=== PATIENT | female | born 1965 | race Asian ===

== ENCOUNTER 2025-01-23 08:02 | Outpatient (CLI) | payer BC, SELFPAY ==
--- NOTE | 2025-01-23 | EST_ITS ---
Patient Info Name: Placido Garcia Age: 60 years : 1965 Gender: Female Ht: 62 in Wt: 128 lbs BSA: 1.60 m2 HR: 67 bpm BP: 109 / 72 mmHg Exam Date: 01/23/2025 9:51 AM Exam Location: Echo Lab Patient Status: Outpatient Admit Date: 01/23/2025 Staff Ordering Physician: Jeff Balderas MD Attending Provider: Jeff Balderas MD Exam Type: CA stress test treadmill w NM Study Info Indications R07.89 - Other chest pain A nuclear stress test was performed. Summary 1. 1. Negative Marcus exercise stress test for ischemic ST changes by ECG criteria. 2. 2. Good functional capacity, achieving 10 METs of workload. 3. 3. Appropriate HR response to exercise. 4. 4. Appropriate HR recovery at 1 minute post exercise. 5. 5. Nuclear scan to follow and will be reported separately. Please correlate with it. 6. 6. Patient informed of the above results. Protocol: Marcus Stress ECG Details Stage: REST Duration (min): 3 min : 52 sec Speed (mph): 0.0 Grade (%): 0 HR (bpm): 73 SBP (mmHg): 109 DBP (mmHg): 72 METS: --- Stage: REST Duration (min): 9 min : 48 sec Speed (mph): 0.0 Grade (%): 0 HR (bpm): 73 SBP (mmHg): 109 DBP (mmHg): 72 METS: --- Stage: STAGE 1 Duration (min): 1 min : 0 sec Speed (mph): 1.7 Grade (%): 10 HR (bpm): 101 SBP (mmHg): 109 DBP (mmHg): 72 METS: --- Stage: STAGE 1 Duration (min): 2 min : 0 sec Speed (mph): 1.7 Grade (%): 10 HR (bpm): 120 SBP (mmHg): 109 DBP (mmHg): 72 METS: --- Stage: STAGE 1 Duration (min): 3 min : 0 sec Speed (mph): 1.7 Grade (%): 10 HR (bpm): 118 SBP (mmHg): 132 DBP (mmHg): 70 METS: --- Stage: STAGE 2 Duration (min): 1 min : 0 sec Speed (mph): 2.5 Grade (%): 12 HR (bpm): 125 SBP (mmHg): 132 DBP (mmHg): 70 METS: --- Stage: STAGE 2 Duration (min): 2 min : 0 sec Speed (mph): 2.5 Grade (%): 12 HR (bpm): 119 SBP (mmHg): 143 DBP (mmHg): 72 METS: --- Stage: STAGE 2 Duration (min): 3 min : 0 sec Speed (mph): 2.5 Grade (%): 12 HR (bpm): 136 SBP (mmHg): 143 DBP (mmHg): 72 METS: --- Stage: STAGE 3 Duration (min): 1 min : 0 sec Speed (mph): 3.4 Grade (%): 14 HR (bpm): 138 SBP (mmHg): 155 DBP (mmHg): 89 METS: --- Stage: STAGE 3 Duration (min): 1 min : 45 sec Speed (mph): 3.4 Grade (%): 14 HR (bpm): 148 SBP (mmHg): 155 DBP (mmHg): 89 METS: --- Stage: RECOVERY Duration (min): 0 min : 14 sec Speed (mph): 1.5 Grade (%): 0 HR (bpm): 149 SBP (mmHg): 155 DBP (mmHg): 89 METS: --- Stage: RECOVERY Duration (min): 1 min : 14 sec Speed (mph): 0.0 Grade (%): 0 HR (bpm): 124 SBP (mmHg): 155 DBP (mmHg): 89 METS: --- Stage: RECOVERY Duration (min): 2 min : 8 sec Speed (mph): 0.0 Grade (%): 0 HR (bpm): 107 SBP (mmHg): 155 DBP (mmHg): 89 METS: --- Rest HR: 73 bpm Peak HR: 149 bpm Rest Sys BP: 109 mmHg Peak Sys BP: 155 mmHg Max Pred HR: 161 bpm % Max Pred HR: 93 % Target HR: 137 bpm Max RPP: 23,095 bpm*mmHg Cueva Score: -5 Termination Reason: Reached target heart rate or workload Cardiac Symptoms: Shortness of breath Max ST Seg Deviation: 3 mm Total Time: 7 min : 45 sec Rest Noble BP: 72 mmHg Peak Noble BP: 89 mmHg Angina Score: None Total METS: 10.1 Resting ECG Sinus rhythm. Stress ECG No ST changes. Arrhythmias None. Report Signatures
--- NOTE | ~2025-01-23 | NM_ITS ---
NM stress w perf spect multi Procedure: The patient was stressed using Modified Marcus protocol. Prior to the end of exercise 33.6 mCi Tc 99m IV administered. Rest imaging performed following administration of 11.1 mCi Tc 99m IV. Images were reformatted into short axis, horizontal and vertical long axis sections for visual and q uantitative analysis. Indication: Anterior wall chest pain Comparison: None Findings: Computer assisted qualitative and quantitative analysis of the immediate and delayed images revealed normal left ventricular perfusion without evidence of fixed or reversible perfusion abnorma lity to suggest ischemia or infarction. Normal left ventricular cavity size, wall motion and ejectio n fraction. Left ventricular ejection fraction measures 90%. Impression: 1: No scintigraphic evidence of resting or stress induced perfusion abnormality. 2: Normal left ventricle ejection fraction measuring 90%. Reviewed, dictated and finalized at location A. Impression: 1: No scintigraphic evidence of resting or stress induced perfusion abnormality . 2: Normal left ventricle ejection fraction measuring 90%.
--- OUTSIDE RECORDS SUMMARY | 2025-01-23 08:13 | XMS_ITS | Continuity of Care Document ---
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 Role Phone Jeff Balderas MD Unavailable Unavailable Allergies, Adverse Reactions, Alerts Substance Reaction Status Criticality No Known Allergies Active No Inform ation Medications Medication Instructions Dosage Effective Dates (start - stop) Status Comments acetic acid 2 % ear solution 5 drop left ear every 4 hours x 5 days - Active triamcinolone acetonide 0.1 % topical cream apply by topical route 2 times every day a thin layer to the affected area(s) 0.00 - Active amoxicillin 875 mg-potassium clavulanate 125 mg tablet take 1 tablet by oral route every 12 hours 1.00 tablet - Active Crestor 5 mg tablet take 1 tablet by oral route every day 5 MG - Active Procedures Procedure Date PREV VISIT, EST, AGE 40-64 OFFICE/OUTPATIENT VISIT, EST OFFICE/OUTPATIENT VISIT, EST PREV VISIT, NEW, AGE 40-64 OFFICE/OUTPATIENT VISIT, NEW Advance Directives Directive Yes / No Effective Date File Name No Information Encounters Encounter Description Practice Location Reason(s) For Visit Diagnoses Date Provider Providers Copied on Encounter [facility], [address] [place], [id number], tel:[phone] [facility] No Information Andrey Aguilar. [address] [facility] [[email or web address]] [place], [place], [address] , [place]. tel:[phone] [facility], [address], [place], [place], [address], [place] tel:[phone] [facility] No Information 5 Andrey Aguilar. [address], [place], [place], [address] , [place]. tel:[phone] [facility], [address], [place], [place], [address], [place] tel:[phone] [facility] No Information 4 Andrey Aguilar. [address], [place], [place], [address] , [place]. tel:[phone] PREV VISIT, EST, AGE 40-64 [facility], [address], [place], [place], [address], [place] tel:[phone] [facility] physical (chief complaint) Mixed hyperlipidemiaLiver diseaseDisorder of thyroid, unspecifiedOther disorders of phosphorus metabolismGeneraliz ed abdominal painAnt chest-wall painEncounter for general adult medical exam w abnormal findingsHyperglycem iaAbdominal pain Mar- 4 Andrey Aguilar. [address], [place], [place], [address] , [place]. tel:[phone] [facility], [address], [place], [place], [address], [place] tel:[phone] [facility] Acute cystitis without hematuria Jun-2 3 Andrey Aguilar. [address], [place], [place], [address] , [place]. tel:[phone] OFFICE/OUTPA TIENT VISIT, EST [facility], [address], [place], [place], [address], [place] tel:[phone] [facility] vitamin d (chief complaint) HLP (chief complaint) thyroid1 (chief complaint) phos (chief complaint) LFT (chief complaint) Disorder of thyroid, unspecifiedVitamin D deficiency, unspecifiedHypergly cemiaHyperlipidemia Other disorders of phosphorus metabolismLiver disease 1 Andrey Aguilar. [address], [place], [place], [address] , [place]. tel:[phone] PREV VISIT, NEW, AGE 40-64 [facility], [address], [place], [place], [address], [place] tel:[phone] [facility] physical (chief complaint) Encounter for general adult medical exam w abnormal findingsZoster without complicationsFamily history of endo, nutritional and metabolic diseases 1 Andrey Aguilar. [address], [place], [place], [address] , [place]. tel:[phone] Family History Family Member Type Diagnosis Age At Onset Mother Problem Alive and well Father Problem Hypertension Brother Problem Alive and well Father Problem Thyroid disorder Payers Payer name Insurance type Covered green party ID Authoriza tion(s) No Information Social History Type Description Quantity Date Captured Comments Sex Female Smoking Status No Information Chief Complaint And Reason For Visit No Information Plan Of Treatment Date Type Action Status Referral Ordered: DXA BONE DENSITY, AXIAL ordered Referral Ordered: US, PELVIC (NONOBSTETRIC); ordered Referral Ordered: CARDIOVASCULAR STRESS TEST ordered Referral Ordered: UPPER GI AIR CONTRASTW/ SMALL BOWEL SERIES ordered Referral Ordered: US EXAM, ABDOM, COMPLETE ordered Referral Ordered: US THYROID ordered History Of Present Illness Encounter Date Complaint History Of Prese nt Illness physical Pt needs annual physical. Pt c/o intermittent left side abd pain for two years Pt denies any constipation or diarrhea Pt denies any blood in stool Pt denies any nausea, vomiting, weight loss .Pt notices dull ache left side of abdomen area . pt denies any flank pain or any urinary symptoms .Pt denies any postprandial pain. Pt has history of HLP, high LFT, high TFT, low D, high phos Pt denies any dysphagia or neck pain, pt never did thyroid ultrasound pt only took statin for two weeks and stopped it due to dry mouth. pt also notices intermittent left side chest pressure with physical exertion during the last several months Pt denies any sob Pt denies any acute chest pain. Pt denies any diaphoresis or palpitation. Pt denies any radiation of pain to left arm or neck. Pt denies any vaginal bleeding or urinary symptoms LFT Pt has bordering high LFT Pt denies any abd pain and she does not drink alcohol phos Pt has mildly hi gh phos. Pt denies any muscle cramp or skin tingling thyroid Pt has normal TS H but high thyroglobulin Pt denies any dysphagia. her father has giorgi HLP Pt has HLP Pt is not on any diet. Pt has borderline high glucose. Pt denies any polyuria polydipsia. vitamin d Pt has low D. Pt is postmeno physical Pt needs annual physical. Pt c/o left heel pain with radiation of pain from posterior heel to calf to posterior thigh to left hip area for 4-5 days. Pt denies any back pain. Pt denies any sciatica. or any loss of bowel or bladder control. Pt denies any numbness and tingling. Pt feels sharp pain around left bottom of left heel but no forefoot or toe issue. Pt denies any edema. Pt denies any injury Pt denies any recent travel or bed rest. Pt denies any chest pain or sob. Pt feels burning pain all of her posterior leg. Pt also notices some blisters type of rash along the left posterior leg as well pt denies any injury. Pt denies any other complaints. Instructions Date Instruction Additional Infor mation No Information Assessments Type Assessment Date No Information
== END 2025-01-23 08:03 | disposition home or self-care (01) ==
PROVIDERS: PCP Emergency Medicine; Visit Provider Emergency Medicine
DX: R07.89 Other chest pain (principal)
CPT/HCPCS: 78452; 93017; A9502

== ENCOUNTER 2025-08-19 07:03 | Outpatient (CLI) | payer BC, SELFPAY ==
--- NOTE | ~2025-08-19 | US_ITS ---
EXAMINATION: US abdomen complete, 08/19/2025 7:25 CDT HISTORY: Upper abd pain COMPARISON: None Technique: Guzman-scale and color Doppler images were obtained. Findings: LIVER: Right lobe liver complex cystic lesion 4.3 x 5 cm. Left lobe liver complex cystic lesion 10 x 10 mm. . GALLBLADDER/BILIARY: Cholelithiasis, no pericholecystic fluid, no wall thickening. CBD 4 mm. [place] sign negative. PANCREAS: Pancreas limited by bowel gas. SPLEEN: Unremarkable, no splenomegaly. KIDNEYS: Right Kidney: Right kidney 9.9 x 4.1 x 4.9 cm, normal. Left Kidney: Left kidney 10.2 x 5.1 x 4.1 cm, normal. AORTA: Normal caliber aorta. IVC: Unremarkable. FREE FLUID: None. Impression: 1. Nonspecific complex appearing liver cysts. Contrast-enhanced CT or MRI is suggested. 2. Cholelithiasis. Reviewed, dictated and finalized at location P. Impression: 1. Nonspecific complex appearing liver cysts. Contrast-enhanced CT or MRI is díaz ggested. 2. Cholelithiasis.
== END 2025-08-19 07:04 | disposition home or self-care (01) ==
PROVIDERS: PCP Emergency Medicine; Visit Provider Emergency Medicine
DX: R10.10 Upper abdominal pain, unspecified (principal)
CPT/HCPCS: 76700

== ENCOUNTER 2025-08-28 10:58 | Outpatient (CLI) | payer BC, SELFPAY ==
--- NOTE | ~2025-08-28 | XR_ITS ---
XR lumbar spine 2-3V Indication: muscle spasm of back, no inj, no surg, 2 days pain Comparison: None Findings: Dextroconvex scoliosis. Grade 1 anterolisthesis of L4 on L5, no fracture. Minimal loss of disc height L3-4 and L4-5 Soft tissues unremarkable Impression: No acute abnormality. Reviewed, dictated and finalized at location P. IT COLLECTIONS MANAGER Impression: No acute abnormality.
== END 2025-08-28 10:59 | disposition home or self-care (01) ==
PROVIDERS: PCP Emergency Medicine; Visit Provider Emergency Medicine
DX: M62.830 Muscle spasm of back (principal)
CPT/HCPCS: 72100

== ENCOUNTER 2025-09-01 07:30 | Outpatient (CLI) | payer BC, SELFPAY ==
--- NOTE | ~2025-09-01 | DEXA_ITS ---
Bone Density Report Name: DIANA LUNA Age: 60 Sex: Female Ethnicity: Date of : 1965 Indication: postmenopausal; screening for osteoporosis; Referring Provider: PABLO GRIMM Study: Bone densitometry was performed. Exam Date: September 01, 2025 Accession number: [id number] Bone Density: Region BMD T-score Z-score Classification AP Spine(L1-L4) 0.838 -1.9 -0.5 Osteopenia Femoral Neck (Left) 0.720 -1.2 0.1 Osteopenia Total Hip (Left) 0.874 -0.6 0.4 Normal Femoral Neck (Right) 0.803 -0.4 0.8 Normal Total Hip (Right) 0.910 -0.3 0.7 Normal Total Hip Mean 0.892 -0.5 0.6 Normal World Health Organization criteria for BMD impression classify patients as: Normal (T-score at or above -1.0), Osteopenia (T-score between -1.0 and -2.5), or Osteoporosis (T-score at or below -2.5). 10-year Fracture Risk(1): Major Osteoporotic Fracture 7.2% Hip Fracture 0.5% Reported Risk Factors: [place] (), Neck BMD=0.720, BMI=24.4 (1) FRAX(R) Version 3.08. Fracture probability calculated for an untreated patient. Fracture probability may be lower if the patient has received treatment. Clinical Information Provided by Patient: Has used the following medications: Vitamin D, Calcium Patient maximum height was 62 Menopause Age: 57 No regular weight bearing exercise Drinks caffeinated beverages Onset of menses at age 13 Number of children 2 Impression: The patient has low bone mass, based on the Total Spine T-score. The patient has an estimated ten-year risk of hip fracture of 0.5% and an estimated ten-year risk of major fracture of 7.2%, based on the WHO FRAX algorithm. Discussion: BONE DENSITY IS LOW AT ONE OR MORE SKELETAL SITES. This patient's lowest T-score is low at one or more skeletal sites. It meets the World Health Organization's (WHO) criteria for ?low bone mass? (T-score between -1.0 and -2.5). The patient's 10-year risk of fracture as calculated by FRAX is less than the threshold where pharmacological therapy is recommended by the National Osteoporosis Foundation (NOF). However, all treatment decisions require clinical judgment and consideration of individual patient factors, including patient preferences, comorbidities, previous drug use, risk factors not captured in the FRAX model (e.g., frailty, falls, vitamin D deficiency, increased bone turnover, interval significant decline in bone density) and possible under or overestimation of fracture risk by FRAX. The patient should follow a healthful lifestyle (good nutrition with adequate calcium and vitamin D, and appropriate weight-bearing exercise). Follow-Up: Consider repeating this study in 2 to 3 years to reassess this patient's status, or sooner if there is some new clinical indication. Reported by: QUINTIN on 09/01/2025 9:27:00 AM. Reviewed, dictated and finalized at location A.
== END 2025-09-01 07:31 | disposition home or self-care (01) ==
LOC: MICIMG 07:31
PROVIDERS: PCP Emergency Medicine; Visit Provider Emergency Medicine
DX: M85.89 Other specified disorders of bone density and structure, multiple sites (principal); Z78.0 Asymptomatic menopausal state
CPT/HCPCS: 77080

== ENCOUNTER 2025-09-21 07:58 | Outpatient (CLI) | payer BC, SELFPAY ==
--- NOTE | ~2025-09-21 | MR_ITS ---
EXAMINATION: MR abdomen wo/w con DATE: 09/21/2025 09:19 INDICATION: Liver cysts. TECHNIQUE: Magnetic resonance imaging (MRI) of the abdomen was performed without and with 13 mL MultiHance intravenous contrast. COMPARISON: Abdomen ultrasound 08/19/25 FINDINGS: There are multiple cysts in the liver measuring up to 5.6 cm. There is an 8 mm mass in left hepatic lobe with delayed hyperenhancement, likely a hemangioma. There are gallstones in the gallbladder, which is normal in size. The spleen, pancreas, adrenal glands, and kidneys are normal. There are no dilated loops of bowel. There are no pathologically enlarged lymph nodes. There is no ascites. IMPRESSION: 1. 8 mm liver mass with delayed hyperenhancement, likely a hemangioma. 2. Cholelithiasis. Reviewed, dictated and finalized at location E. INE HOSTLER
== END 2025-09-21 07:59 | disposition home or self-care (01) ==
PROVIDERS: PCP Emergency Medicine; Visit Provider Emergency Medicine
DX: K76.89 Other specified diseases of liver (principal); K80.20 Calculus of gallbladder without cholecystitis without obstruction
CPT/HCPCS: 74183; A9577

== ENCOUNTER 2025-10-03 02:20 | Day surgery (SDC) | payer BC, SELFPAY ==
[2025-09-15 11:14] VITALS: BMI 24.2
[2025-10-03 13:41] VITALS: BP 105/68; PULSE 96; RESP 18; TEMP 36.6; O2SAT 98; BMI 23.8
[2025-10-03] MEDS: LACTATED RINGERS 1,000 ML 150 ML IV CONT (13:44)
--- NOTE | 2025-10-03 13:56 | P.PNAN_ITS ---
Anes - Initial Pre Proc Eval Procedure: Operation Date: 10/03/25 14:00 Proposed Procedures p EGD & Diagnostic Colonoscopy - Vidal Gutierrez MD Date/Time: 10/03/25 13:56 Surgeon: Vidal Gutierrez MD Pre Op Diagnosis: Early satiety, Unspecified abdominal pain, GERD Patient Data Age: 60 Gender: F Height: 1.57 m Weight: 59.1 kg Last Vital Signs Temp 36.6 C 10/03/25 13:41 Pulse 96 10/03/25 13:41 Resp 18 10/03/25 13:41 BP 105/68 10/03/25 13:41 Pulse Ox 98 10/03/25 13:41 O2 Del Method Room Air 10/03/25 13:41 Allergies Allergy/AdvReac Type Severity Reaction Status Date / Time No Known Allergies Allergy Verified 10/03/25 13:39 Home Medications ?Medication ?Instructions ?Recorded ?Confirmed ?Type ergocalciferol (vitamin D2) 1,250 125 mcg PO DAILY 10/03/25 History mcg (50,000 unit) capsule rosuvastatin 5 mg tablet 5 mg PO DAILY 09/15/2510/03 History Patient hx anesthesia problems: none Family hx anesthesia problems: none Results Review: All pre-operative results and documents have been reviewed as part of the pre- operative evaluation. [facility] Past Medical History Medical History Abnormal mammogram Mastodynia of left breast Screening mammogram, encounter for UTI (urinary tract infection), bacterial Family History Family History Father Hypertension Grandparent Cerebrovascular accident, Onset Age: 84 Social History Social History Smoking status: Never smoker Alcohol intake: never Substance use: never Substance use type: does not use Living arrangements: with family Spiritual care concerns: No Anes - Eval Final PreProcedure Day of Procedure 10/03/25 13:56 Patient weight: normal Heart: regular rate and rhythm Lungs: clear to auscultation Airway: Mallampati scale class II Neurological: alert and oriented Last oral intake: >/= 8 hours ASA classification: II Emergent: no Anesthetic plan: proceed Anesthesia type and monitoring: general GIVS and standard monitoring Results Review: All pre-operative results and documents have been reviewed as part of the pre- operative evaluation. Informed Consent: The patient's anesthetic plan and its attendant risks and benefits were discussed with the patient/family/POA. Questions were solicited and answers provided to the satisfaction of the patient/family/POA.
--- NOTE | 2025-10-03 14:17 | PM.HPGS ---
History of Present Illness History of Present Illness Consent: Risks, benefits, and alternatives have been discussed and questions answered. Patient agrees to proceed with procedure. Chief complaint: Early satiety, Unspecified abdominal pain, GERD Narrative: Placido Garcia is a 60 year old female here with non cardiac chest pain and burping, also first screening colonoscopy Review of Systems Review of Systems: All systems reviewed & are unremarkable except as noted in HPI and below PMFSH Past Medical History Medical History (Updated 10/03/25 @ 14:18 by Vidal Gutierrez MD) Colon cancer screening Non-cardiac chest pain Functional burping disorder Abnormal mammogram Mastodynia of left breast Screening mammogram, encounter for UTI (urinary tract infection), bacterial Family History Family History Father Hypertension Grandparent Cerebrovascular accident, Onset Age: 84 Social History Social History Smoking status: Never smoker Alcohol intake: never Substance use: never Substance use type: does not use Living arrangements: with family Spiritual care concerns: No Meds Home Medications and Allergies Home Medications ?Medication ?Instructions ?Recorded ?Confirmed ?Type ergocalciferol (vitamin D2) 1,250 125 mcg PO DAILY 09/15/25 10/03/25 History mcg (50,000 unit) capsule rosuvastatin 5 mg tablet 5 mg PO DAILY 09/15/25 10/03/25 History Allergies Allergy/AdvReac Type Severity Reaction Status Date / Time No Known Allergies Allergy Verified 10/03/25 13:39 Vital Signs Vital Signs - 24 hr 10/03/25 13:41 Temperature 97.8 F Pulse Rate 96 Respiratory Rate 18 Blood Pressure 105/68 Pulse Oximetry 98 Oxygen Delivery Room Air Exam Const: General: comfortable and no acute distress HENMT: Face/Nose/Sinus: Normal nares present Eyes: General: appearance normal, both eyes and all related structures Neck: Neck: no JVD Resp: Auscultation: clear to auscultation bilaterally Cardio: Rate: regular rate Rhythm: regular rhythm GI: Inspection: non-distended GI Palp: Yes Soft to palpation Skin: General skin exam: normal color Extrem: General: normal to inspection Psych: Mental Status: mental status grossly normal Assessment and Plan Assessment and plan (1) Functional burping disorder: Code(s): R14.2 - Eructation Status: Acute Assessment and Plan: egd (2) Non-cardiac chest pain: Code(s): R07.89 - Other chest pain Status: Acute (3) Colon cancer screening: Code(s): Z12.11 - Encounter for screening for malignant neoplasm of colon Status: Acute Assessment and Plan: colonoscopy
--- NOTE | 2025-10-03 14:32 | S_PTH ---
PATIENT: Placido Garcia LOC: [facility]o#:[id number] AGE/SX: 60/F ROOM: RE10/03/[address]: Vidal Gutierrez MD : 1965 BED: DIS: 10/03/2025 SPEC #: [id number] RECD: 10/06/25 07:56 STATUS: MYA REMackenzie #: [id number] KEIRY: 10/03/25 14:[address]: Vidal Gutierrez DEPT: [facility] Surgical RECD BY: Jossie Coulter ENTERED: 10/06/25 07:56 SP TYPE: Surgical OTHR DR: Jeff Balderas MD Tissues: A - Gastric Biopsy B - Colon Polypectomy C - Colon Polypectomy Procedures: Hematoxylin and Eosin Stain Gross and Microscopic Level 4
--- NOTE | 2025-10-03 14:35 | SUR.OPER ---
EGD ended at 1430. Colonoscopy started at 1435.
[2025-10-03 14:47] VITALS: BP 107/52; PULSE 80; RESP 20; O2SAT 100
[2025-10-03 14:57] VITALS: BP 116/60; PULSE 75; RESP 16; O2SAT 100
[2025-10-03 15:07] VITALS: BP 119/63; PULSE 72; RESP 16; O2SAT 100
== END 2025-10-03 15:13 | disposition home or self-care (01) ==
PROVIDERS: PCP Emergency Medicine; Referring Provider Emergency Medicine; Visit Provider Internal Medicine Gastroenterology
PROC: 0DJ08ZZ Inspection of Upper Intestinal Tract, Via Natural or Artificial Opening Endoscopic (ICD-10-PCS; CPT 45378; principal; 2025-10-03 14:00)
DX: Z12.11 Encounter for screening for malignant neoplasm of colon (principal); D12.5 Benign neoplasm of sigmoid colon; D12.4 Benign neoplasm of descending colon; K64.8 Other hemorrhoids; K29.50 Unspecified chronic gastritis without bleeding; B96.81 Helicobacter pylori [H. pylori] as the cause of diseases classified elsewhere
CPT/HCPCS: 43239; 45385; 88305; J2003; J2704; J7120